=== PATIENT | female | born 1980 | race African-American/Black ===

== ENCOUNTER 2019-09-29 15:35 | Emergency (ER) | payer OTHER ==
[~2019-09-29] VITALS: Ht 167.6 cm; Wt 117.9 kg
[2019-09-29] MEDS ORDERED: ADDERALL 10 MG10 MG (15:50)
[2019-09-29] MEDS ORDERED: WELLBUTRIN 75 M75 M1 (15:51)
[2019-09-29] MEDS ORDERED: TRAZODONE 150150 M1 (15:53)
[2019-09-29] MEDS ORDERED: ZOFRAN4 MG PO (15:53)
[2019-09-29] MEDS ORDERED: TIZANIDINE HCL4 M1 PO (15:53)
[2019-09-29] MEDS ORDERED: OMEPRAZOLE10 MG PO (15:53)
[2019-09-29] MEDS ORDERED: ADVAIR 100-501 EACH INH (15:53)
[2019-09-29] MEDS ORDERED: NORCO 5-325 TA1 EAC1 PO (18:21)
[2019-09-29 18:32] VITALS: BP 135/90
== END 2019-09-29 18:32 | disposition home or self-care (01) ==
LOC: M.ERS 15:35
DX: S16.1XXA Strain of muscle, fascia and tendon at neck level, initial encounter (principal); S29.012A Strain of muscle and tendon of back wall of thorax, initial encounter; Z88.0 Allergy status to penicillin; V49.69XA Unspecified car occupant injured in collision with other motor vehicles in traffic accident, initial encounter; Y93.89 Activity, other specified; Y92.89 Other specified places as the place of occurrence of the external cause; Y99.8 Other external cause status